=== PATIENT | male | born 1970 | race Caucasian/White ===

== ENCOUNTER 2019-11-08 07:55 | Inpatient (IN) ==
[2019-11-08] MEDS ORDERED: 0.9 % SODIUM CHLORIDE 1,000 ML IV ONE (08:07)
[2019-11-08] MEDS ORDERED: ACETAMINOPHEN 1,000 MG/100 ML BOTTLE IV ONE (08:18)
[2019-11-08] MEDS ORDERED: OSELTAMIVIR PHOSPHATE 75 MG CAPSULE PO ONE ×2 (08:26→10:03)
--- NOTE | 2019-11-08 08:28 | Emergency Department Note ---
Weakness HPI - General Chief complaint: Weakness Stated complaint: weakness, flu symptoms, headache Time Seen by Provider: 11/08/19 08:11 Source: patient Mode of arrival: ambulatory Limitations: no limitations - History of Present Illness HPI Narrative: 49-year-old male with a 3-day history of fever chills myalgias and malaise. He cannot seem to get warm. Productive coughing fits. No nausea vomiting or diarrhea. Some shortness of breath - Related Data Previous Rx's Medication Instructions Recorded Rivaroxaban [Xarelto] 15 mg PO BIDCC #41 tablet 05/30/17 Allergies Allergy/AdvReac Type Severity Reaction Status Date / Time No Known Drug Allergies Allergy Verified 11/08/19 07:58 Review of Systems All systems ED: reviewed and negative except as stated. Past Medical History - Past Medical History Attestation: Yes: The following information was validated with the patient. Medical history: Reports: DVT, pulmonary embolus Surgical history ED: Reports: orthopedic, other (left knee ACL), tonsillectomy - Social History smoking status: Former smoker Alcohol use: Reports: Rarely Drug use: Reports: none Physical Exam Normocephalic atraumatic. Conjunctive are clear sclerae white nonicteric. No nasal discharge or congestion. Oropharynx with dry buccal mucosa. Posterior pharynx is clear. Neck is supple without lymphadenopathy or thyromegaly. Heart is regular rhythm but tachycardic. I cannot hear a murmur. Lungs are basically clear to auscultation bilaterally without wheezes rales rhonchi or respiratory distress. However he is mildly hypoxic at rest with saturations dipping down to 90%. Abdomen is soft nontender nondistended. No pedal edema. Alert oriented able to answer questions appropriately. Noted general malaise and fatigue Limitations: no limitations Course Vital Signs Temperature 103.2 F H 11/08/19 07:56 Pulse Rate 120 H 11/08/19 07:56 Respiratory Rate 24 H 11/08/19 07:56 Blood Pressure 149/95 11/08/19 07:56 Pulse Oximetry (%) 91 11/08/19 07:56 Temperature 103.2 F H 11/08/19 07:56 Pulse Rate 120 H 11/08/19 07:56 Respiratory Rate 24 H 11/08/19 07:56 Blood Pressure 149/95 11/08/19 07:56 Pulse Oximetry (%) 91 11/08/19 07:56 Weakness - Lab Data Result diagrams: 11/08/19 08:07 11/08/19 08:07 Lab Results 11/08/19 Range/Units 08:07 Band Neutrophils % Not Reportable Positive for influenza A - Radiology Data Radiology results reviewed: Yes I reviewed the patient's radiology results. Chest x-ray shows left-sided lower lung pneumonia/infiltrate Disposition Pt seen by WORK FORCE ADVISOR/PA only: No Clinical Impression: Pneumonia due to influenza A virus Qualifiers: Laterality: left Lung location: lower lobe of lung Qualified Code(s): J11.00 - Influenza due to unidentified influenza virus with unspecified type of pneumonia Summary: Patient is positive for influenza A and chest x-ray shows pneumonia both retrocardiac and anterior in the left lower lung. He is mildly hypoxic so I ordered arterial blood gas. Laboratories ordered as well as Tamiflu and IV Tylenol for the fever. Patient will be handed off to Dr. Ariza for further work-up treatment and disposition at shift change Disposition: Still a Patient Condition: Serious Referrals: Andrea Bonilla MD [Primary Care Provider] -
--- NOTE | 2019-11-08 08:42 | XRay Report ---
CLINICAL INFORMATION: SOB, Fever COMPARISON: None. FINDINGS: Heart size, mediastinum and pulmonary vessels are normal. Moderate patchy left lower lobe infiltrate and small left pleural effusion are present. Bone and soft tissues normal IMPRESSION: Moderate patchy left lower lobe infiltrate and small effusion Interpreted and Authenticated by: Elmer Greer 11/08/19
[2019-11-08 08:56] LABS: Hematocrit 43.4 % (40.1-51.0); Hemoglobin 15.1 g/dL (13.7-17.5); Mean Cell Volume 84.6 fL (80.0-100.0); Mean Corpuscular HGB Conc 34.8 g/dL (31.0-36.0); Mean Platelet Volume 9.7 fL (7.4-10.4); RBC 5.13 M/mcL (4.63-6.08); Red Cell Distribution Width 12.6 % (11.5-14.5); WBC 8.9 K/mcL (4.50-11.00)
[2019-11-08 09:12] LABS: ALT/SGPT 33 U/l (0-40); AST/SGOT 31 U/l (0-37); Albumin 3.9 gm/dL (3.2-5.2); Albumin/Globulin Ratio 1.4 (1.0-2.3); Alkaline Phosphatase 97 U/L (39-117); Bilirubin,Total 0.3 mg/dL (0.0-1.0); Blood Urea Nitrogen 14 mg/dl (6-20); Calcium 8.9 mg/dl (8.6-10.4); Carbon Dioxide 17 mmol/L (22-30); Globulin 2.7 gm/dL (2.2-3.7); Glomerular Filtration Rate 78; Glucose 172 mg/dL (70-105)
[2019-11-08] MEDS ORDERED: cefTRIAXone 1 GM VIAL IV ONE (09:15)
[2019-11-08] MEDS ORDERED: LEVOFLOXACIN 500 MG/100 ML BAG IV ONE (09:15)
[2019-11-08 09:16] LABS: Chloride 93 mmol/L (96-108)
[2019-11-08] MEDS ORDERED: IPRATROPIUM/ALBUTEROL 3 ML AMPUL.NEB NEB ONE (09:25)
[2019-11-08 09:36] LABS: Platelet Count 94 K/mcL (140-440)
[2019-11-08 09:46] LABS: Band Neutrophils % 9 % (0-10); Basophils % (Manual) 1 % (0-2); Lymphocytes % 5 % (15-49); Monocytes % (Manual) 7 % (1-12); Platelet Estimate DECREASED (NORMAL); RBC Morphology NORMAL (NORMAL); Segmented Neutrophils % 78 % (38-78)
--- NOTE | 2019-11-08 09:57 | Emergency Department Note ---
Weakness HPI - General Chief complaint: Weakness Stated complaint: weakness, flu symptoms, headache Time Seen by Provider: 11/08/19 08:11 Source: patient Mode of arrival: ambulatory Limitations: no limitations - Related Data Previous Rx's Medication Instructions Recorded Rivaroxaban [Xarelto] 15 mg PO BIDCC #41 tablet 05/30/17 Allergies Allergy/AdvReac Type Severity Reaction Status Date / Time No Known Drug Allergies Allergy Verified 11/08/19 07:58 Past Medical History - Past Medical History Medical history: Reports: DVT, pulmonary embolus Surgical history ED: Reports: orthopedic, other (left knee ACL), tonsillectomy - Social History smoking status: Former smoker Alcohol use: Reports: Rarely Drug use: Reports: none Physical Exam Limitations: no limitations Course - Reevaluation(s) Reevaluation #1: Patient discussed with our hospitalist. The. At this point, he does have pneumonia left lower lobe, he is also positive for influenza a, his count is not impressive, however, he is hypoxic and he has a left lower lobe infiltrate and is bringing up a lot of yellow and green phlegm up. He quit smoking 2 years ago, is not significantly wheezy at this time, but he is high risk for worsening of symptoms and needs to be hospitalized for pneumonia. He also has an oxygen requirement. Vital Signs Temperature 103.2 F H 11/08/19 07:56 Pulse Rate 120 H 11/08/19 07:56 Respiratory Rate 24 H 11/08/19 07:56 Blood Pressure 149/95 11/08/19 07:56 Pulse Oximetry (%) 91 11/08/19 07:56 Temperature 102.2 F H 11/08/19 09:09 Pulse Rate 104 H 11/08/19 09:30 Respiratory Rate 24 H 11/08/19 07:56 Blood Pressure 113/79 11/08/19 09:30 Pulse Oximetry (%) 94 11/08/19 09:30 Weakness - Lab Data Lab results reviewed: Yes I reviewed the patient's lab results. Result diagrams: 11/08/19 08:07 11/08/19 08:07 Lab Results 11/08/19 11/08/19 11/08/19 Range/Units 08:07 08:07 08:07 WBC 8.9 (4.50-11.00) K/mcL RBC 5.13 (4.63-6.08) M/mcL Hgb 15.1 (13.7-17.5) g/dL Hct 43.4 (40.1-51.0) % MCV 84.6 (80.0-100.0) fL MCH 29.4 (26.0-34.0) pg MCHC 34.8 (31.0-36.0) g/dL RDW 12.6 (11.5-14.5) % Plt Count 94 L (140-440) K/mcL MPV 9.7 (7.4-10.4) fL Total Counted 100 Seg Neutrophils % 78 (38-78) % Band Neutrophils % 9 (0-10) % Lymphocytes % 5 L (15-49) % Monocytes % (Manual) 7 (1-12) % Basophils % (Manual) 1 (0-2) % Platelet Estimate Decreased A (NORMAL) RBC Morphology Normal (NORMAL) VBG Lactic Acid 0.9 (0.5-2.0) mmol/L Sodium 126 L (133-145) mmol/L Potassium 3.3 (3.3-5.1) mmol/L Chloride 93 L (96-108) mmol/L Carbon Dioxide 17 L (22-30) mmol/L Anion Gap 16.0 (8-16) BUN 14 (6-20) mg/dl Creatinine 1.1 (0.7-1.2) mg/dl GFR Calculation 78 Glucose 172 H (70-105) mg/dL Calcium 8.9 (8.6-10.4) mg/dl Total Bilirubin 0.3 (0.0-1.0) mg/dL AST 31 (0-37) U/l ALT 33 (0-40) U/l Alkaline Phosphatase 97 (39-117) U/L Total Protein 6.6 (5.9-8.4) gm/dL Albumin 3.9 (3.2-5.2) gm/dL Globulin 2.7 (2.2-3.7) gm/dL Albumin/Globulin Ratio 1.4 (1.0-2.3) Procalcitonin (<0.10) ng/mL 11/08/19 Range/Units 08:07 WBC (4.50-11.00) K/mcL RBC (4.63-6.08) M/mcL Hgb (13.7-17.5) g/dL Hct (40.1-51.0) % MCV (80.0-100.0) fL MCH (26.0-34.0) pg MCHC (31.0-36.0) g/dL RDW (11.5-14.5) % Plt Count (140-440) K/mcL MPV (7.4-10.4) fL Total Counted Seg Neutrophils % (38-78) % Band Neutrophils % (0-10) % Lymphocytes % (15-49) % Monocytes % (Manual) (1-12) % Basophils % (Manual) (0-2) % Platelet Estimate (NORMAL) RBC Morphology (NORMAL) VBG Lactic Acid (0.5-2.0) mmol/L Sodium (133-145) mmol/L Potassium (3.3-5.1) mmol/L Chloride (96-108) mmol/L Carbon Dioxide (22-30) mmol/L Anion Gap (8-16) BUN (6-20) mg/dl Creatinine (0.7-1.2) mg/dl GFR Calculation Glucose (70-105) mg/dL Calcium (8.6-10.4) mg/dl Total Bilirubin (0.0-1.0) mg/dL AST (0-37) U/l ALT (0-40) U/l Alkaline Phosphatase (39-117) U/L Total Protein (5.9-8.4) gm/dL Albumin (3.2-5.2) gm/dL Globulin (2.2-3.7) gm/dL Albumin/Globulin Ratio (1.0-2.3) Procalcitonin 0.27 (<0.10) ng/mL - Radiology Data Radiology results reviewed: Yes I reviewed the patient's radiology results. Disposition Pt seen by PAINTER AIRBRUSH/PA only: No Clinical Impression: Pneumonia due to influenza A virus Qualifiers: Laterality: left Lung location: lower lobe of lung Qualified Code(s): J11.00 - Influenza due to unidentified influenza virus with unspecified type of pneumonia Disposition: Xfer As Inpt ([facility]) Condition: Serious Referrals: Andrea Bonilla MD [Primary Care Provider] -
[2019-11-08] MEDS ORDERED: ACETAMINOPHEN 325 MG TABLET PO PRN (10:55)
[2019-11-08] MEDS ORDERED: oxyCODONE HCL 5 MG TABLET PO PRN (10:55)
[2019-11-08] MEDS ORDERED: ONDANSETRON 4 MG/2 ML VIAL IV PRN (10:55)
[2019-11-08] MEDS: 0.9 % SODIUM CHLORIDE 1,000 ML IV SCH ×2 (11:18→19:48)
[2019-11-08] MEDS: IBUPROFEN 600 MG TABLET PO PRN ×2 (11:27→19:49)
[2019-11-08 11:28] LABS: Appearance,Urine CLEAR; Bacteria,Urine 0 /hpf (0); Bilirubin,Urine NEG (NEG); Color,Urine YELLOW; Culture Indicated,Urine NO; Glucose,Urine (UA) NEGATIVE (NEG); Ketones,Urine NEG (NEG); Leukocyte Esterase,Urine NEG /uL (NEG); Mucus,Urine FEW /hpf (0); Nitrate,Urine NEG (NEG); Protein,Urine NEG (NEG); Specific Gravity,Urine 1.013 (1.000-1.035); Urine Blood 0.03 mg/dL (<0.03); Urine RBC < 1 /hpf (0-1); Urine Squamous Epithelial Cell 0 /hpf (0-4); Urine WBC 1 /hpf (0-4); Urobilinogen,Urine NEG (NEG)
[2019-11-08 12:10] LABS: Blood Urea Nitrogen 13 mg/dl (6-20); Calcium 8.8 mg/dl (8.6-10.4); Carbon Dioxide 20 mmol/L (22-30); Chloride 97 mmol/L (96-108); Glomerular Filtration Rate 70; Glucose 152 mg/dL (70-105); Phosphorous 3.2 mg/dL (2.7-4.5)
[2019-11-08] MEDS: 0.9 % SODIUM CHLORIDE 10 ML SYRINGE IV SCH ×2 (13:51→21:36)
[2019-11-08] MEDS ORDERED: MAGNESIUM SULFATE 2 GM/50 ML BAG IV ONE (14:21)
--- NOTE | 2019-11-08 15:08 | Internal Med History&Physical ---
Medical - H&P: HPI Patient information: Note initiated : 11/08/19 at 3:05 pm Service Date, if different from initiated Date: [] Patient: Efrem Hernandez a 49 y/o M admitted on 11/08/19 for weakness, flu symptoms, headache. Chief Complaint: [] Chief complaint: Fevers lethargy History of present illness: Mr. Hernandez is a 49 year old M With history of DVT and PE comes in with fevers chills malaise starting Friday but worse Friday and Friday. He states he skipped his golf T time on Friday and never does that. His golf handicap is about 10. Patient does not drink or smoke routinely. Quit smoking 2 years ago after 30 pack years. He drinks 1 drink every 3 weeks or so. He uses no street drugs. Patient works for [employer]. Patient feels he is getting dehydrated and unable to eat or drink much she has had fevers chills sweats. Today he notified his how sick he was as she was headed for work and she called his mother who brought him in. Patient reports coughing up green phlegm copious amounts. - Constitutional Constitutional: Present: as per HPI, fever(s), night sweats, weakness - Cardiovascular Cardiovascular: Absent: chest pain - Gastrointestinal Gastrointestinal: Absent: abdominal pain, constipation, diarrhea, nausea, vom iting - Genitourinary Genitourinary: Absent: urinary frequency, urinary hesitancy, urinary urgency - Musculoskeletal Musculoskeletal: Absent: joint swelling, muscle cramps, muscle weakness - Integumentary Integumentary: Present: as per HPI - Neurological Neurological: Present: as per HPI. Absent: convulsions, focal weakness - Psychiatric Psychiatric: Absent: behavioral changes - Endocrine Endocrine: Present: fatigue. Absent: change in body appearance, cold int olerance - Hematologic/Lymphatic Hematologic/Lymphatic: Present: other (no cancer). Absent: easy bleeding, easy bruising Medical - H&P: PMH Problems Reviewed: Yes Medical history: DVT following right knee ACL injury and immobility 12 years ago Left leg DVT unprovoked 3 years ago Surgical history: Tonsillectomy and adenoidectomy as a child Right knee ACL repair by Dr. Perez at [facility] approximately 12 years ago Social history: Quit tobacco over 2 years ago no illicits at all he wants full CODE STATUS Functional capacity: independent ambulation Smoking status: Former smoker Have you smoked in the last 12 months: No Drug use: none Alcohol use: occasionally Employment history: Works for [employer] - H&P: Meds Home Medications Medication Instructions Recorded Confirmed Type Rivaroxaban [Xarelto] 10 mg PO DAILY 11/08/19 11/08/19 History Allergies Allergy/AdvReac Type Severity Reaction Status Date / Time No Known Drug Allergies Allergy Verified 11/08/19 11:13 Medical - H&P: Exam - Constitutional Vitals: Temp Pulse Resp BP Pulse Ox 99.3 F H 104 H 22 126/75 96 11/08/19 13:00 11/08/19 13:00 11/08/19 13:00 11/08/19 13:00 11/08/19 13:00 General appearance: average body habitus, cooperative, obese (muscular build mod overweight) - Head Head exam: Present: normal inspection - Eye Eye exam: Absent: scleral icterus - Neck Neck exam: Present: full ROM. Absent: lymphadenopathy, tenderness, thyromegaly - Respiratory Respiratory exam: Present: decreased breath sounds (bases). Absent: respiratory distress - Cardiovascular Cardiovascular exam: Present: normal rate and rhythm - GI/Abdominal GI/Abdominal exam: Present: normal bowel sounds. Absent: tenderness - Extremities Exam Extremities exam: Present: normal inspection, Foot pink and warm. Absent: pedal edema, tenderness - Neurological Exam Neurological exam: Present: alert, oriented X3 - Psychiatric Psychiatric exam: Present: normal affect, normal mood - Skin Skin exam: Present: warm Additional comments: mild diaphoretic Medical - H&P: Reslt - Labs CBC & Chem 7: 11/08/19 08:07 11/08/19 11:22 Labs: Short CBC 11/08/19 Range/Units 08:07 WBC 8.9 (4.50-11.00) K/mcL Hgb 15.1 (13.7-17.5) g/dL Hct 43.4 (40.1-51.0) % Plt Count 94 L (140-440) K/mcL BMP 11/08/19 11/08/19 08:07 11:22 Sodium 126 L 133 Potassium 3.3 3.4 Chloride 93 L 97 Carbon Dioxide 17 L 20 L BUN 14 13 Creatinine 1.1 1.2 Glucose 172 H 152 H Calcium 8.9 8.8 Liver Function 11/08/19 Range/Units 08:07 Total Bilirubin 0.3 (0.0-1.0) mg/dL AST 31 (0-37) U/l ALT 33 (0-40) U/l Alkaline Phosphatase 97 (39-117) U/L Albumin 3.9 (3.2-5.2) gm/dL Urine 11/08/19 Range/Units 10:35 Urine Color Yellow Urine Appearance Clear Urine pH 6.0 (5.0-9.0) Ur Specific [place] 1.013 (1.000-1.035) Urine Protein Neg (NEG) mg/dL Urine Glucose (UA) Negative (NEG) mg/dL Medical - H&P: A/P (1) Pneumonia due to influenza A virus Problem details: pt has never had influenza or pneumonia vaccine. nasal swab positive. lots of green purulent phlegm suggest bacterial superinfection but notably procalcitonin only borderline. Current visit: Yes Status: Acute will tx with levaquin for strep and atypicals for 5-7 days. hydrate and tx with prn nebulizers steroids for fatigue, inflammation and hyponatremia (2) Acute hyponatremia Problem details: na 126 due to pneumonia from influenza. purulent phlegm cant exclude bacterial superinfection Current visit: Yes Status: Acute will give saline. add low dose solumedrol. recheck now and in am (3) DVT (deep venous thrombosis) Problem details: recurrent twice and on chronic anticoagulation per his physician Current visit: No Status: Acute continue xarelto - Narrative A/P Narrative: 70 mins spent in evaluation and coordination of care for this patient today Medical - H&P: Qual - VTE Deep Vein Thrombosis/Pulmonary Embolism Present on Admission: No
[2019-11-08] MEDS: predniSONE 10 MG TABLET PO SCH (17:15)
[2019-11-08] MEDS ORDERED: RIVAROXABAN 15 MG TABLET PO SCH ×2 (17:30)
[2019-11-08 19:30] LABS: Blood Urea Nitrogen 13 mg/dl (6-20); Calcium 8.4 mg/dl (8.6-10.4); Carbon Dioxide 19 mmol/L (22-30); Chloride 103 mmol/L (96-108); Glomerular Filtration Rate 70; Glucose 171 mg/dL (70-105)
[2019-11-08] MEDS: DOCUSATE SODIUM 100 MG CAPSULE PO SCH (19:50)
[2019-11-08] MEDS ORDERED: SENNOSIDES 1 TABLET PO SCH (21:00)
[2019-11-08 23:54] LABS: Blood Urea Nitrogen 13 mg/dl (6-20); Calcium 8.8 mg/dl (8.6-10.4); Carbon Dioxide 20 mmol/L (22-30); Chloride 104 mmol/L (96-108); Glomerular Filtration Rate 78; Glucose 157 mg/dL (70-105)
[2019-11-09] MEDS: 0.9 % SODIUM CHLORIDE 1,000 ML IV SCH ×2 (02:20→08:09)
[2019-11-09] MEDS: 0.9 % SODIUM CHLORIDE 10 ML SYRINGE IV SCH (04:26)
[2019-11-09 06:43] LABS: Basophils # (Auto) 0.01 K/mcL (0.00-0.30); Basophils % (Auto) 0.1 % (0.0-2.0); Eosinophils # (Auto) 0 K/mcL (0.00-0.70); Eosinophils % (Auto) 0 % (0.0-7.0); Granulocytes % (Auto) 86.5 % (38.0-78.0); Hematocrit 42.9 % (40.1-51.0); Hemoglobin 14.3 g/dL (13.7-17.5); Lymphocytes # (Auto) 0.83 K/mcL (1.50-4.80); Lymphocytes % (Auto) 7.8 % (15.5-49.0); Mean Cell Volume 87.2 fL (80.0-100.0); Mean Corpuscular HGB Conc 33.3 g/dL (31.0-36.0); Mean Platelet Volume 10.1 fL (7.4-10.4); Monocytes % (Auto) 5.6 % (1.0-12.0); Platelet Count 116 K/mcL (140-440); RBC 4.92 M/mcL (4.63-6.08); Red Cell Distribution Width 13.2 % (11.5-14.5); WBC 10.7 K/mcL (4.50-11.00)
[2019-11-09 07:34] LABS: ALT/SGPT 25 U/l (0-40); AST/SGOT 24 U/l (0-37); Albumin 3.3 gm/dL (3.2-5.2); Albumin/Globulin Ratio 1.2 (1.0-2.3); Alkaline Phosphatase 87 U/L (39-117); Bilirubin,Total 0.2 mg/dL (0.0-1.0); Blood Urea Nitrogen 11 mg/dl (6-20); Calcium 8.7 mg/dl (8.6-10.4); Carbon Dioxide 20 mmol/L (22-30); Chloride 108 mmol/L (96-108); Globulin 2.8 gm/dL (2.2-3.7); Glomerular Filtration Rate 87; Glucose 124 mg/dL (70-105)
--- NOTE | 2019-11-09 07:54 | XRay Report ---
CLINICAL INFORMATION: influenza pneumonia LLL COMPARISON: 11/08/2019 FINDINGS: Heart size, mediastinum and pulmonary vessels are normal. Moderate patchy left lower lobe infiltrate with a small lingula component has improved from yesterday. Tiny left pleural effusion noted IMPRESSION: Moderate patchy left basilar infiltrate improvement from yesterday Interpreted and Authenticated by: Elmer Greer 11/09/19
[2019-11-09] MEDS: predniSONE 10 MG TABLET PO SCH (08:05)
[2019-11-09] MEDS: DOCUSATE SODIUM 100 MG CAPSULE PO SCH (08:05)
[2019-11-09] MEDS ORDERED: RIVAROXABAN 20 MG TABLET PO SCH (09:00)
[2019-11-09] MEDS ORDERED: LEVOFLOXACIN 500 MG TABLET PO SCH (09:00)
[2019-11-09] MEDS ORDERED: OSELTAMIVIR PHOSPHATE 75 MG CAPSULE PO SCH (09:00)
--- NOTE | 2019-11-09 11:45 | Discharge Summary ---
Medical - DS: Prov Patient information: Note initiated : 11/09/19 at 11:43 am Service Date, if different from initiated Date: [] Patient: Efrem Hernandez 49 y/o M admitted on 11/08/19 for weakness, flu symptoms, headache. Chief Complaint: [] Date of admission: 11/08/19 10:52 Discharge date: 11/09/19 Primary care physician: Andrea Bonilla Admitting clinician: Macario Layne Consults: 11/08/19 10:01 Consult to Physician [CONS] Stat Comment: Consulting Provider: Macario Layne Reason For Exam: Physician to Consult Attending physician on discharge: Macario Layne Medical - DS: Meds - Discharge Medications Prescriptions: Levofloxacin [Levaquin] 500 mg PO DAILY 6 Days #6 tab Oseltamivir Phosphate [Tamiflu] 75 mg PO BID 4 Days #8 cap Active and Home Medications: Home Medications Rivaroxaban [Xarelto] 10 mg PO DAILY 11/08/19 [History Confirmed 11/08/19 Last Taken 11/07/19 09:00] Medical - DS: Hosp Hospital Course: 49-year-old male developed severe cough copious green phlegm, malaise weakness lethargy on Friday. Friday he was not feeling well enough to go make his golf T time. Friday remain sick at home with poor intake and Friday morning felt terrible so came to the ER and found to have sodium 126 and left lower lobe pneumonia with positive influenza A [id number] test. Patient was treated with Tamiflu and started on fluid bolus. Lactic acid was normal procalcitonin mildly elevated at 0.27. Patient's sodium has normalized to 6 sodium 140. He is voiding well and 800% of his food. He reports no fevers myalgias improving. He would like to continue his care at home. Patient has never had a influenza or Pneumovax in the past. He is on chronic anticoagulation for recurrent DVTs with low-dose Xarelto. Discharge diagnosis: Influenza A Secondary discharge diagnosis: Recurrent DVTs on chronic anticoagulation with Xarelto Hyponatremia now resolved Reason for admission: Influenza A with severe Methylfolate - Time Spent with Patient Total time spent providing and/or coordinating discharge services: Greater than 30 minutes Medical - DS: Exam - Constitutional Vitals: Vital Signs Temp Pulse Resp BP Pulse Ox 11/09/19 08:00 98.8 F 91 H 20 133/96 95 11/08/19 23:36 99 F 73 20 124/81 98 11/08/19 20:00 98.8 F 82 20 142/93 96 11/08/19 18:47 98 11/08/19 16:00 98.4 F 87 18 131/77 95 11/08/19 13:00 99.3 F H 104 H 22 126/75 96 Intake and Output 11/08/19 11/09/19 11/09/19 21:59 05:59 13:59 Intake Total 1360 1820 873 Output Total 1150 1050 Balance 210 770 873 Intake: IV 1000 980 873 Sodium Chloride 0.9% 1,000 ml @ 1000 980 873 150 mls/hr IV [id number] [facility] Rx#: [id number] Oral 360 840 Output: Urine Catheter Amount 400 Void Amount 1150 650 Other: Meal Lunch Percent of Meal Consumed 100% Urine Appearance Clear Clear Urine Color Pale Dark Yellow Weight 215 lb 12.8 oz - Other Additional findings: General well-developed well-nourished modestly overweight male in no acute cardiopulmonary distress CV regular rate and rhythm Lungs clear to auscultation in the upper lung koehler and right lung but with m ild crackles in the left base Abdomen positive bowel sounds soft nontender Calves no tenderness pretibial edema or asymmetry Skin warm and dry no diaphoresis Mentation alert and oriented x3 Medical - DS: Data Labs on day of discharge: Labs from last 24 hours 11/09/19 11/09/19 11/08/19 05:10 05:10 22:55 WBC 10.7 RBC 4.92 Hgb 14.3 Hct 42.9 MCV 87.2 MCH 29.1 MCHC 33.3 RDW 13.2 Plt Count 116 L MPV 10.1 Gran % 86.5 H Lymph % (Auto) 7.8 L [place] % (Auto) 5.6 Eos % (Auto) 0 Baso % (Auto) 0.1 Gran # 9.24 H Lymph # (Auto) 0.83 L [place] # (Auto) 0.60 Eos # (Auto) 0 Baso # (Auto) 0.01 Sodium 140 138 Potassium 3.9 3.9 Chloride 108 104 Carbon Dioxide 20 L 20 L Anion Gap 12.0 14.0 BUN 11 13 Creatinine 1.0 1.1 GFR Calculation 87 78 Glucose 124 H 157 H Calcium 8.7 8.8 Phosphorus Magnesium Total Bilirubin 0.2 AST 24 ALT 25 Alkaline Phosphatase 87 Total Protein 6.1 Albumin 3.3 Globulin 2.8 Albumin/Globulin Ratio 1.2 11/08/19 11/08/19 17:05 11:22 WBC RBC Hgb Hct MCV MCH MCHC RDW Plt Count MPV Gran % Lymph % (Auto) Ma[place] % (Auto) Eos % (Auto) Baso % (Auto) Gran # Lymph # (Auto) Maury # (Auto) Eos # (Auto) Baso # (Auto) Sodium 137 133 Potassium 3.3 3.4 Chloride 103 97 Carbon Dioxide 19 L 20 L Anion Gap 15.0 16.0 BUN 13 13 Creatinine 1.2 1.2 GFR Calculation 70 70 Glucose 171 H 152 H Calcium 8.4 L 8.8 Phosphorus 3.2 Magnesium 1.4 L Total Bilirubin AST ALT Alkaline Phosphatase Total Protein Albumin Globulin Albumin/Globulin Ratio Preliminary micro results at discharge 11/08/19 09:22 Blood Culture - Preliminary Blood 11/08/19 09:33 Blood Culture - Preliminary Blood 11/08/19 09:57 Sputum Culture - Preliminary Sputum - Expectorated Medical - DS: A/P - Patient/Caregiver Discharge Instructions Activity: other (May return to work next Friday) Diet: Regular Diet Prescriptions: Levofloxacin [Levaquin] 500 mg PO DAILY 6 Days #6 tab Oseltamivir Phosphate [Tamiflu] 75 mg PO BID 4 Days #8 cap - Problem Maintenance (1) Pneumonia due to influenza A virus Status: Acute Comment: pt has never had influenza or pneumonia vaccine. nasal swab positive. lots of green purulent phlegm suggest bacterial superinfection but notably procalcitonin only borderline. Continue 4 more days of Tamiflu. Due to the copious green sputum which is improving as well as the hyponatremia suggesting possible bacterial component will treat with 6 more days of Levaquin 500 mg daily Qualifiers: Laterality: left Lung location: lower lobe of lung Qualified Code(s): J11.00 - Influenza due to unidentified influenza virus with unspecified type of pneumonia (2) Acute hyponatremia Status: Acute Comment: na 126 due to pneumonia from influenza. purulent phlegm cant exclude bacterial superinfection (3) DVT (deep venous thrombosis) Status: Acute Comment: recurrent twice and on chronic anticoagulation per his physician Qualifiers: DVT location: lower extremity Affected thrombotic vein of extremity: unspecified vein of extremity Chronicity: acute Laterality: bilateral Qualified Code(s): I82.403 - Acute embolism and thrombosis of unspecified deep veins of lower extremity, bilateral - Follow up Plan Follow up with: Andrea Bonilla MD [Primary Care Provider] - 11/15/19 2:00 pm (Please check in @ 1:45 pm) Disposition: Home, Self-Care Care Plan Goals: This discharge packet is provided to you to help keep you informed about your care. We want to ensure you get everything you need when you go home. You will also be receiving a call from us in a few days to follow up with you and see how you are doing since your discharge. This gives us a chance to listen to any concerns you maybe experiencing since you were discharged or any additional needs you may have, as well as providing us feedback on your care experience. We strive to always provide excellent care and thank you for your feedback and for choosing [facility]. Prognosis: Good Rehab Potential: Good I certify that the patient requires SNF services: No Overall status at discharge: patient is progressing back to baseline Medical - DS: Qual - VTE Deep Vein Thrombosis/Pulmonary Embolism Present on Admission: No
== END 2019-11-09 13:40 | disposition home or self-care (01) | DRG 194 ==
LOC: ICU 07:55 → ED 07:55 → OBSVTOIN 10:52 → INTOOBSV 10:52 → ICU 11:00
PROVIDERS: ADMIT Internal Medicine; ATTEND Internal Medicine